=== PATIENT | male | born 1975 | race Caucasian/White ===

== ENCOUNTER 2018-06-28 14:24 | Emergency (ER) | payer OTHER | END 2018-06-28 15:51 | disposition home or self-care (01) | LOC: M ED 14:24 | DX: K04.7 Periapical abscess without sinus (principal); Z88.8 Allergy status to other drugs, medicaments and biological substances | CPT/HCPCS: 99283 ==

== ENCOUNTER 2018-12-17 17:11 | Emergency (ER) | payer OTHER ==
[~2018-12-17] VITALS: Ht 182.9 cm; Wt 79.5 kg
[~2018-12-17 17:11] MED LIST: CLEO300C2 PO
[2018-12-17 17:12] VITALS: BP 158/96
[2018-12-17] MEDS ORDERED: AUGM875T28 PO (19:34)
[2018-12-17] MEDS ORDERED: LIDO1SOL7 SSP (19:34)
[2018-12-17] MEDS ORDERED: KETO10TAB PO (19:34)
[2018-12-17] MEDS ORDERED: KETOROLAC TROMETHAMINE 10 MG TAB PO ONE (19:45)
[2018-12-17] MEDS ORDERED: AUGMENTIN 875 MG TAB PO ONE (19:45)
== END 2018-12-17 19:45 | disposition home or self-care (01) ==
LOC: M ED 17:11
DX: K05.219 Aggressive periodontitis, localized, unspecified severity (principal); K02.9 Dental caries, unspecified; R22.0 Localized swelling, mass and lump, head; Z88.8 Allergy status to other drugs, medicaments and biological substances; Z87.442 Personal history of urinary calculi

== ENCOUNTER 2019-09-19 10:40 | Emergency (ER) | payer OTHER ==
[~2019-09-19] VITALS: Ht 182.9 cm; Wt 79.5 kg
[~2019-09-19 10:40] MED LIST changes: +AUGM875T28 PO; +KETO10TAB PO; +LIDO1SOL8 SSP
[2019-09-19 11:33] LABS: BASO % 0.8 % (0.0-1.0); EOS # 0.1 10^3/uL (0.0-0.5); EOS % 2.8 % (0.0-3.0); HEMATOCRIT 44.1 % (42.0-52.0); HEMOGLOBIN 14.8 g/dl (13.5-17.5); LYMPH # 1.6 10^3/uL (1.5-5.0); LYMPH % 32.9 % (24.0-44.0); MEAN CORPUSCULAR HEMOGLOBIN 29.3 pg (27.0-33.0); MEAN CORPUSCULAR HGB CONC 33.6 g/dl (32.0-36.5); MEAN CORPUSCULAR VOLUME 87.3 fl (80.0-96.0); MONO # 0.3 10^3/uL (0.0-0.8); MONO % 6.8 % (0.0-5.0); NEUTROPHILS # 2.8 10^3/uL (1.5-8.5); NEUTROPHILS % 56.5 % (36.0-66.0); PLATELET COUNT, AUTOMATED 198 10^3/uL (150-450); RED BLOOD COUNT 5.05 10^6/uL (4.30-6.10)
--- NOTE | 2019-09-19 11:42 | REP ---
Single view chest: 09/19/2019. Indication: Chest pain. Comparison: None. Findings: The lungs are clear. There is no pleural effusion or pneumothorax. The cardiomediastinal silhouette is unremarkable. Impression: No acute cardiopulmonary process. Electronically Signed by Mello Cowart DO 09/19/2019 11:34 A
[2019-09-19 11:58] LABS: ALBUMIN 3.9 GM/DL (3.2-5.2); ALT/SGPT 28 U/L (12-78); BILIRUBIN,DIRECT < 0.1 MG/DL (0.0-0.2); BILIRUBIN,TOTAL 0.8 MG/DL (0.2-1.0); BLOOD UREA NITROGEN 18 MG/DL (7-18); CALCIUM LEVEL 8.8 MG/DL (8.5-10.1); CARBON DIOXIDE LEVEL 27 MEQ/L (21-32); CHLORIDE LEVEL 108 MEQ/L (98-107); CREATININE FOR GFR 1.01 MG/DL (0.70-1.30); GLOMERULAR FILTRATION RATE > 60.0 (>60); GLUCOSE, FASTING 102 MG/DL (70-100); LIPASE 120 U/L (73-393); POTASSIUM SERUM 3.9 MEQ/L (3.5-5.1); SODIUM LEVEL 141 MEQ/L (136-145); TOTAL PROTEIN 7.4 GM/DL (6.4-8.2)
[2019-09-19] MEDS ORDERED: SUCR1SUS PO (13:27)
[2019-09-19] MEDS ORDERED: OMEP40CA97 PO (13:27)
[2019-09-19] MEDS ORDERED: GI COCKTAIL 50ML BTL(HYOSCYAMINE/MAALOX/LIDOCAINE VISCOUS)(1:3:1) As Ordered ONE (13:32)
[2019-09-19 13:33] VITALS: BP 125/73
[2019-09-19] MEDS ORDERED: GI COCKTAIL 50ML BTL(HYOSCYAMINE/MAALOX/LIDOCAINE VISCOUS)(1:3:1) PO ONE (13:45)
--- NOTE | 2019-09-20 13:00 | ECGEPIP ---
[facility] - ED Test Date: 2019-09-19 Pat Name: MARKEL PHILLIPS Department: Room: - Gender: Male Stave Hewer: Isabella DICKERSON : 1975 Requested By: JEROME Rosales Order Number: [id number] Reading MD: Prisca Flaherty Measurements Intervals [place] Rate: 71 P: 50 RI: 162 QRS: 29 QRSD: 92 T: 29 QT: 373 QTc: 407 Interpretive Statements SINUS RHYTHM WITH SINUS ARRHYTHMIA NO PRIOR Electronically Signed on 09-20-2019 13:00:38 EST by Prisca Flaherty
== END 2019-09-19 13:45 | disposition home or self-care (01) ==
LOC: M ED 10:40 → EDBD 10:40 → M ED 13:45
DX: K21.9 Gastro-esophageal reflux disease without esophagitis (principal); Z79.899 Other long term (current) drug therapy; Z88.8 Allergy status to other drugs, medicaments and biological substances

== ENCOUNTER 2020-10-19 22:46 | Emergency (ER) | payer OTHER ==
[~2020-10-19] VITALS: Ht 182.9 cm; Wt 95.5 kg
[~2020-10-19 22:46] MED LIST changes: -LIDO1SOL8 SSP; +LIDO2SOL17 SSP; +OMEP40CA97 PO; +SUCR1ORA PO
[2020-10-19] MEDS ORDERED: KETOROLAC 30 MG/ML 1ML VIAL IV ONE (23:15)
--- NOTE | 2020-10-19 23:39 | REPVR ---
PROCEDURE INFORMATION: Exam: CT Abdomen And Pelvis Without Contrast Exam date and time: 10/19/2020 11:05 PM Age: 45 years old Clinical indication: Abdominal pain; Flank; Left; Additional info: Left renal colic TECHNIQUE: Imaging protocol: Computed tomography of the abdomen and pelvis without contrast. Axial, coronal and sagittal reformatted images were created and reviewed. Radiation optimization: All CT scans at this facility use at least one of these dose optimization techniques: automated exposure control; mA and/or kV adjustment per patient size (includes targeted exams where dose is matched to clinical indication); or iterative reconstruction. COMPARISON: CT ABD PELVIS W/O CONTRAST 09/24/2014 10:36 PM FINDINGS: Mediastinal space: Small hiatal hernia. Liver: Unremarkable. Gallbladder and bile ducts: No radiodense gallstones. No biliary ductal dilatation. Pancreas: Unremarkable. Spleen: Unremarkable. Adrenal glands: Normal. No mass. Kidneys and ureters: Mild left-sided hydroureteronephrosis and perinephric/periureteral stranding, secondary to a 6 mm calculus at the left UVJ or in the adjacent urinary bladder (axial image 123 and coronal image 51). Nonobstructing right renal calculi. Stomach and bowel: Scattered colonic diverticula without evidence of diverticulitis. No obstruction. No bowel wall thickening. No pneumatosis. Appendix: Normal. Intraperitoneal space: No free fluid. No organized fluid collection. No free air. Vasculature: Unremarkable. No aneurysm. Lymph nodes: No pathologically enlarged lymph nodes. Urinary bladder: Mild circumferential urinary bladder wall thickening, likely secondary to underdistention. Reproductive: Unremarkable. Bones/joints: No acute osseous abnormality. Soft tissues: Unremarkable. IMPRESSION: 1. Mild left-sided hydroureteronephrosis and perinephric/periureteral stranding, secondary to a 6 mm calculus at the left UVJ or in the adjacent urinary bladder. 2. Additional findings, as above. Electronically signed by: Bassam Paulino On 10/19/2020 23:39:13 PM
[2020-10-20] MEDS ORDERED: TAMSULOSIN 0.4 MG CAP PO ONE
[2020-10-20] MEDS ORDERED: KETOROLAC 30 MG/ML 1ML VIAL IV ONE
[2020-10-20 02:07] VITALS: BP 114/59
== END 2020-10-20 02:11 | disposition home or self-care (01) ==
LOC: M ED 22:46
DX: N20.1 Calculus of ureter (principal); Z87.442 Personal history of urinary calculi; Z88.8 Allergy status to other drugs, medicaments and biological substances
CPT/HCPCS: 74176; 81001; 96374; 96376; 99284; J1885

== ENCOUNTER 2023-08-24 06:03 | Emergency (ER) | payer OTHER, SELFPAY ==
[~2023-08-24] VITALS: Ht 182.9 cm; Wt 88.0 kg
[~2023-08-24 06:03] MED LIST changes: +LIDO15SO SSP; -LIDO2SOL17 SSP; +OMEP40CA4 PO; -OMEP40CA97 PO
[2023-08-24 06:43] LABS: APPEARANCE, URINE HAZY (CLEAR); BACTERIA, URINE AUTO NEGATIVE (NEGATIVE); BILIRUBIN, URINE AUTO NEGATIVE (NEGATIVE); BLOOD, URINE BLOOD 3+ (NEGATIVE); COLOR, URINE YELLOW (YELLOW); GLUCOSE, URINE (UA) AUTO NEGATIVE (NEGATIVE); KETONE, URINE AUTO NEGATIVE (NEGATIVE); LEUKOCYTE ESTERASE, URINE AUTO NEGATIVE (NEGATIVE); MUCUS, URINE SMALL (NEGATIVE); NITRITE, URINE AUTO NEGATIVE (NEGATIVE); PROTEIN, URINE AUTO 1+ mg/dL (NEGATIVE); RBC, URINE AUTO TNTC /HPF (0-3); SPECIFIC GRAVITY URINE AUTO 1.023 (1.002-1.035); SQUAMOUS EPITHELIAL CELL UR AU 0 /HPF (0-6); UROBILINOGEN, URINE AUTO 0.2 mg/dL (0.0-2.0); WBC, URINE AUTO 2 /HPF (0-3)
[2023-08-24 07:20] LABS: BASO # 0.1 10^3/uL (0.0-0.2); BASO % 0.9 % (0.0-1.0); EOS # 0.3 10^3/uL (0.0-0.5); EOS % 4.6 % (0.0-3.0); HEMATOCRIT 43.9 % (42.0-52.0); HEMOGLOBIN 14.8 g/dl (13.5-17.5); LYMPH # 2.4 10^3/uL (1.5-5.0); MEAN CORPUSCULAR HGB CONC 33.7 g/dl (32.0-36.5); MEAN CORPUSCULAR VOLUME 88.9 fl (80.0-96.0); MONO # 0.5 10^3/uL (0.0-0.8); MONO % 6.9 % (2.0-8.0); NEUTROPHILS # 3.5 10^3/uL (1.5-8.5); NEUTROPHILS % 52.3 % (36.0-66.0); PLATELET COUNT, AUTOMATED 205 10^3/uL (150-450); RED BLOOD COUNT 4.94 10^6/uL (4.30-6.10); WHITE BLOOD COUNT 6.8 10^3/uL (4.0-10.0)
[2023-08-24 09:04] VITALS: BP 139/84; TEMP 98.2; O2SAT 99
== END 2023-08-24 09:26 | disposition home or self-care (01) ==
LOC: M ED 06:03
DX: R31.9 Hematuria, unspecified (principal); R74.8 Abnormal levels of other serum enzymes; Z87.442 Personal history of urinary calculi; Z79.899 Other long term (current) drug therapy